=== PATIENT | male | born 1935 | race Caucasian/White ===

== ENCOUNTER → 2020-03-17 | Outpatient (CLI) | payer MEDICARE, OTHER ==
[~2020-03-17] MED LIST: ALBU2.5V14 NEB; AMIO200T4 PO; AMLO10TA8 PO; ASPI-171 PO; BUME2TAB3 PO; CARV25TA PO; HYDR-2869 PO; ISOS30TA19 PO; LEVO100T5 PO; LORA10TA55 PO; VALS40TA10 PO; WARF-31 PO
== END ==
LOC: LAB 14:35
PROVIDERS: ATTEND Dentist Oral and Maxillofacial Surgery
DX: Z01.812 Encounter for preprocedural laboratory examination (principal); Z20.828 Contact with and (suspected) exposure to other viral communicable diseases
CPT/HCPCS: U0003-CS

== ENCOUNTER 2020-03-21 12:33 | Day surgery (SDC) | payer OTHER ==
[~2020-03-21] VITALS: Ht 167.6 cm; Wt 73.9 kg
[~2020-03-21 12:33] MED LIST changes: -AMIO200T4 PO; +AMIO200T6 PO; +AMLO-187 PO; -AMLO10TA8 PO; +BACITRACIN 50,000 UNIT in IV NORMAL SALINE 500ML BAG 500 ML IRR ONE; +BUPIVACAINE-EPI 0.5%-1:200000 MPF 30 ML VIAL. INJ ONE; +HYDROmorphone 2 MG/ML VIAL IV PRN; +IV RINGERS,LACTATED 1000ML 1,000 ML IV SCH; +LIDOCAINE 1% PF 2 ML VIAL. ID PRN; +MORPHINE SULFATE 2 MG/ML VIAL. IV PRN; +ONDANSETRON PF 4 MG/2 ML VIAL. IV PRN; +PROCHLORPERAZINE 10 MG/2 ML VIAL. IV PRN; +fentaNYL PF VIAL 100 MCG/2 ML VIAL IV PRN
[2020-03-21] MEDS ORDERED: IV NORMAL SALINE 1000ML BAG 1,000 ML IV ONE (13:15)
[2020-03-21] MEDS ORDERED: GELATIN SPONGE SIZE 12-7MM SPONGE. ONE (13:21)
[2020-03-21] MEDS ORDERED: fentaNYL PF VIAL 100 MCG/2 ML VIAL ONE (13:24)
[2020-03-21] MEDS ORDERED: ROCURONIUM 100 MG/10 ML VIAL. ONE (13:24)
[2020-03-21] MEDS ORDERED: PROPOFOL 10 MG/ML (20ML) VIAL. IV ONE (13:25)
[2020-03-21] MEDS ORDERED: DEXAMETHASONE SOD PHOS 4 MG/ML VIAL ONE ×2 (13:25)
[2020-03-21] MEDS ORDERED: ONDANSETRON PF 4 MG/2 ML VIAL. ONE (13:25)
[2020-03-21] MEDS ORDERED: LIDOCAINE 2% PF 5 ML VIAL. ONE (13:25)
[2020-03-21 13:30] LABS: BASO # 0.1 x10^3/uL (0.0-0.2); BASO % 1 % (0-3); EOS # 0.2 x10^3/uL (0.0-0.7); EOS % 2 % (0-3); HEMOGLOBIN 8.2 g/dL (13.0-17.5); LYMPH # 1.2 x10^3/uL (1.0-4.8); LYMPH % 14 % (24-48); MEAN CORPUSCULAR HEMOGLOBIN 30 pg (25-35); MEAN CORPUSCULAR HGB CONC 34 g/dL (31-37); MEAN CORPUSCULAR VOLUME 86 fL (79-100); MONO # 0.7 x10^3/uL (0.0-1.1); MONO % 8 % (0-9); NEUT # 6.6 x10^3/uL (1.8-7.7); NEUT % 75 % (31-73); PLATELET COUNT 285 x10^3/uL (140-400); RED BLOOD COUNT 2.77 x10^6/uL (4.30-5.70); RED CELL DISTRIBUTION WIDTH 14.5 % (11.5-14.5); WHITE BLOOD COUNT 8.8 x10^3/uL (4.0-11.0)
[2020-03-21] MEDS ORDERED: GLYCOPYRROLATE 1 MG/5 ML VIAL. ONE ×2 (13:34→15:59)
[2020-03-21] MEDS ORDERED: NEOSTIGMINE METHYLSULFATE 5 MG/5 ML SYRINGE. ONE ×2 (13:34→15:59)
[2020-03-21 13:36] LABS: CALCIUM 8.6 mg/dL (8.5-10.1); GFR 14.4; POTASSIUM 3.3 mmol/L (3.5-5.1)
[2020-03-21] MEDS ORDERED: CHLORHEXIDINE 0.12% 15 ML MOUTHWASH. ONE (14:29)
[2020-03-21] MEDS ORDERED: PHENYLEPHRINE in 0.9% NACL PF 1 MG/10 ML SYRINGE. IV ONE (15:03)
[2020-03-21] MEDS ORDERED: ePHEDrine PF IN SALINE 50 MG/10 ML SYRINGE. IV ONE (15:05)
[2020-03-21] MEDS ORDERED: SEVOFLURANE > 120 MINUTES. IH ONE (16:00)
[2020-03-21] MEDS ORDERED: SEVOFLURANE 61 TO 120 MINUTES. IH ONE (16:03)
--- NOTE | 2020-03-21 16:23 | PDOC4 ---
OPERATIVE NOTE Date: Date: Mar 21, 2020 Pre-Op Diagnosis: HTN CHF Carious non restorable teeth # 28, 30 bilateral mandibular robel Post-Op Diagnosis: same Procedure Performed: Surgical removal of Carious non restorable teeth # 28, 30 LR alveoloplasty bilateral mandibular robel Surgeon: angie Anesthesia Type: mcnitt Blood Loss: 50 Specimans Obtained: none teeth disposed of in OR Findings: Surgical removal of Carious non restorable teeth # 28, 30 bilateral mandibular robel Complications: none Operative Note: see dictation SVETLANA FIGUEREDO DMD Mar 21, 2020 16:23
[2020-03-21 17:10] VITALS: BP 126/63
--- NOTE | 2020-03-21 18:59 | OP ---
DATE OF SURGERY: 03/21/2020 OPERATING SERVICE: blindstitch hemmer. ATTENDING PHYSICIAN: Svetlana Figueredo DMD PREOPERATIVE DIAGNOSES: 1. Hypertension. 2. Congestive heart failure. 3. On anticoagulants warfarin for deep venous thrombosis and coronary artery disease. 4. Caries, nonrestorable fractured teeth #28 and #30 and also has bilateral mandibular robel lower right and lower left. POSTOPERATIVE DIAGNOSES: 1. Hypertension. 2. Congestive heart failure. 3. Anticoagulant warfarin for DVT, coronary artery disease. 4. Caries, nonrestorable fractured teeth #28 and #30 and also has bilateral mandibular robel lower right and lower left. PROCEDURES PERFORMED: Surgical removal of teeth #28 and #30 and alveoloplasty in the lower right and removal of bilateral mandibular robel lower right, and lower left. BRIEF HISTORY: The patient is an 84-year-old male referred to our clinic by the [place] for removal of nonrestorable teeth and preprosthetic surgery. History and physical was performed in our clinic and patient was consented and a permit was obtained and the patient was scheduled for the OR. Because of his multiple comorbidities and the nature of the surgery, the setting of care was escalated to the operating suite. ESTIMATED BLOOD LOSS: 50 mL. DRAINS PLACED: None. SPECIMEN SENT: None. Teeth were disposed off in the OR. COMPLICATIONS: No complications noted at the time of surgery. OPERATIVE DESCRIPTION: After the history and physical was completed and updated, the patient was then transported by the Anesthesia Service to the operating suite, placed in the supine position. General anesthesia was induced. The patient was then intubated with an oral intubation, which was secured to the upper left face and remained so during and throughout the procedure. A surgical timeout was initiated by surgical staff, all perioperative staff were in agreeance. Local anesthesia in the form of 0.5% Marcaine, 1:200,000 epinephrine was administered, approximately 22 mL was administered into the proposed surgical areas. Surgery began with placement of a moistened throat pack and the oral cavity was then lavaged and cleansed. The patient was then prepped and draped in normal sterile fashion. The #15 blade was brought to the field and utilized to incise interproximally and a full thickness mucoperiosteal flap was reflected buccally at sites #28 and #30 and lingually at the rest of the lower right and left sides. The periosteal Bradley and Seldin elevators were utilized to reflect full thickness mucoperiosteal flaps. The teeth #28 and #30 were luxated, elevated and extracted with hand instruments without complication. The sites were curetted and alveoloplasty was performed with rotary instrumentation in the lower right with copious normal sterile saline irrigation. The mandibular robel of bilateral lower right and lower left were removed with rotary instrumentation with copious normal sterile saline irrigation and this was checked to remove all undercuts with both the lingual mandibular robel and the buccal robel on the lower right side. All areas were removed with additional rotary instrumentation or bone file and the sites were then lavaged with copious normal sterile saline irrigation. The surgical sites were then packed with Gelfoam in the extraction sites and the lingual flaps were then resuspended to approximate the remaining dentition. The lower right side had sustained a small tear or perforation approximately 5 mm long over tooth #30. An attempt was made to oversew this as there was significant bleeding risk in that area and the patient has anticoagulant medication on board already. There was no obvious need for additional sutures and the sites appeared to be hemostatic at the end of the culmination of the procedure and remained so in the PACU. Oral cavity was then lavaged and suctioned. Moistened throat pack was removed. An OG was passed and the stomach was decompressed. The patient was then returned to the care of Anesthesia, where he was awakened and extubated without complication and transported to the PACU in stable condition. SVETLANA FIGUEREDO DMD DR: MIGUEL/laurie JOB#: [id number] / [id number] JOHANNY
== END 2020-03-21 17:54 | disposition home or self-care (01) ==
LOC: SURG 12:33 → EDUNIT# 14:30 → SURG 17:54
PROVIDERS: ATTEND Dentist Oral and Maxillofacial Surgery
DX: S02.5XXA Fracture of tooth (traumatic), initial encounter for closed fracture (principal); K02.9 Dental caries, unspecified; F43.0 Acute stress reaction; I11.0 Hypertensive heart disease with heart failure; I50.9 Heart failure, unspecified; I25.10 Atherosclerotic heart disease of native coronary artery without angina pectoris; X58.XXXA Exposure to other specified factors, initial encounter; Y93.89 Activity, other specified; Y92.89 Other specified places as the place of occurrence of the external cause; Y99.8 Other external cause status; Z79.82 Long term (current) use of aspirin; Z79.899 Other long term (current) drug therapy
CPT/HCPCS: 36415; 41899; 80048; 85025; 85610; 85730; A7015; J0690; J1100; J2370; J2405; J2704; J2710; J3010; J3490; J7040